=== PATIENT | male | born 1975 | race Two or more races ===

== ENCOUNTER → 2018-07-16 | Outpatient (CLI) | payer OTHER ==
[2018-07-16 18:02] LABS: ESTIMATED AVERAGE GLUCOSE 163 MG/DL (60-110); HEMOGLOBIN A1c 7.3 %
[2018-07-16 18:08] LABS: ALBUMIN 3.9 GM/DL (3.2-5.2); ALBUMIN/GLOBULIN RATIO 1.11 (1.00-1.93); ALKALINE PHOSPHATASE 87 U/L (45-117); ALT/SGPT 95 U/L (12-78); ANION GAP 6 MEQ/L (8-16); AST/SGOT 57 U/L (7-37); BILIRUBIN,TOTAL 0.8 MG/DL (0.2-1.0); BLOOD UREA NITROGEN 11 MG/DL (7-18); CALCIUM LEVEL 8.7 MG/DL (8.5-10.1); CARBON DIOXIDE LEVEL 30 MEQ/L (21-32); CHLORIDE LEVEL 102 MEQ/L (98-107); CHOLESTEROL LEVEL 204 MG/DL (<200); CHOLESTEROL RISK RATIO 8.869 (<5); CREATININE FOR GFR 0.98 MG/DL (0.70-1.30); GLOMERULAR FILTRATION RATE > 60.0 (>60); GLUCOSE, FASTING 123 MG/DL (70-100); HDL CHOLESTEROL 23 MG/DL (>40); NON-HDL-C 181 MG/DL; POTASSIUM SERUM 4.6 MEQ/L (3.5-5.1); SODIUM LEVEL 138 MEQ/L (136-145); TOTAL PROTEIN 7.4 GM/DL (6.4-8.2); TRIGLYCERIDES LEVEL 420 MG/DL (<150)
== END ==
LOC: M WUC 13:40
DX: E78.2 Mixed hyperlipidemia (principal); E03.9 Hypothyroidism, unspecified; R73.01 Impaired fasting glucose; F33.0 Major depressive disorder, recurrent, mild
CPT/HCPCS: 84443

== ENCOUNTER 2025-04-27 13:44 | Emergency (ER) | payer OTHER ==
[~2025-04-27] VITALS: Ht 180.3 cm; Wt 114.6 kg
[2025-04-27] MEDS ORDERED: FENO160T10 (13:56)
[2025-04-27] MEDS ORDERED: LOSA25TA13 (13:56)
[2025-04-27] MEDS ORDERED: JANU100T (13:56)
[2025-04-27] MEDS ORDERED: METF850T4 (13:56)
[2025-04-27] MEDS ORDERED: ATOR40TA75 (13:56)
[2025-04-27] MEDS ORDERED: GLIP5TAB17 (13:56)
[2025-04-27] MEDS ORDERED: JARD1TAB3 (13:56)
[2025-04-27] MEDS ORDERED: AMIT50TA (13:56)
[2025-04-27] MEDS ORDERED: LEXA1TAB2 (13:56)
[2025-04-27] MEDS ORDERED: LEVO125T4 (13:56)
[2025-04-27] MEDS: ACETAMINOPHEN 500 MG TAB PO ONE (15:15)
[2025-04-27 16:40] VITALS: BP 157/100; TEMP 98.8; O2SAT 96
== END 2025-04-27 17:29 | disposition left against medical advice (07) ==
LOC: M ED 13:44
DX: S13.4XXA Sprain of ligaments of cervical spine, initial encounter (principal); S46.012A Strain of muscle(s) and tendon(s) of the rotator cuff of left shoulder, initial encounter; S06.0X0A Concussion without loss of consciousness, initial encounter; Y92.9 Unspecified place or not applicable; Y93.9 Activity, unspecified; Y99.9 Unspecified external cause status; V49.40XA Driver injured in collision with unspecified motor vehicles in traffic accident, initial encounter; I10 Essential (primary) hypertension; F17.210 Nicotine dependence, cigarettes, uncomplicated; F10.10 Alcohol abuse, uncomplicated; Z79.84 Long term (current) use of oral hypoglycemic drugs; Z79.899 Other long term (current) drug therapy; Z53.9 Procedure and treatment not carried out, unspecified reason